=== PATIENT | female | born 1980 | race African-American/Black ===

== ENCOUNTER 2025-07-17 08:39 | Emergency (ER) | payer MEDICAID ==
[~2025-07-17] VITALS: Ht 162.6 cm; Wt 54.0 kg
[~2025-07-17 08:39] MED LIST: ALBU05 IH; LORA0.5T2
[2025-07-17 08:46] VITALS: O2SAT 100
[2025-07-17 09:31] LABS: CLARITY URINE CLOUDY (CLEAR); COLOR URINE YELLOW (YELLOW); GLUCOSE URINE NEGATIVE (NEGATIVE); KETONES URINE NEGATIVE (NEGATIVE); LEUKOCYTE ESTERASE URINE TRACE (NEGATIVE); NITRITE URINE NEGATIVE (NEGATIVE); OCCULT BLOOD URINE 3+ (NEGATIVE); PH URINE 5.5 (4.5-8.0); PROTEIN URINE TRACE (NEGATIVE); SPECIFIC GRAVITY URINE 1.009 (1.005-1.030); UROBILINOGEN URINE 0.2 E.U./dL (0.2-1.0)
[2025-07-17] MEDS: KETOROLAC 30MG/ML VIAL IM ONE (09:37)
[2025-07-17] MEDS: ONDANSETRON 4MG ODT PO ONE (09:38)
[2025-07-17 09:53] LABS: BACTERIA URINE TRACE; SQUAMOUS EPITHELIAL CELL URINE 2+ /lpf (RARE/1+); YEAST URINE 1+
[2025-07-17 10:03] LABS: BASOPHILS % 0.4 % (0.0-2.0); EOSINOPHILS % 0.9 % (0.0-5.0); HEMATOCRIT. 40.3 % (36.0-48.0); HEMOGLOBIN. 13.7 g/dL (12.0-16.0); LYMPHOCYTES % 7.7 % (20.0-50.0); MEAN PLATELET VOLUME 7.9 fl (7.4-10.4); MONOCYTES % 11.3 % (2.0-8.0); NEUTROPHILS % 79.7 % (40.0-76.0); PLATELET 262 x1000/uL (130-400); RED BLOOD CELL COUNT 4.24 mill/uL (4.2-5.4); RED CELL DISTRIBUTION WIDTH 13.9 % (11.6-14.6)
[2025-07-17 10:18] LABS: CREATININE 4.7 mg/dL (0.6-1.0); UREA NITROGEN BLOOD 32 mg/dL (9-23)
[2025-07-17 10:19] LABS: PROTEIN TOTAL 8.4 g/dL (6.0-8.3)
[2025-07-17 10:20] LABS: ASPARTATE AMINOTRANSFERASE 37 IU/L (<34)
[2025-07-17 10:21] LABS: BILIRUBIN DIRECT 0.1 mg/dL (<=3.0); BILIRUBIN TOTAL 0.4 mg/dL (0.1-1.0)
[2025-07-17 10:36] LABS: HCG SCREEN NEGATIVE
[2025-07-17] MEDS ORDERED: TOPUD MT (16:16)
[2025-07-17] MEDS ORDERED: CEFU500T66 MT (16:16)
[2025-07-17 16:25] VITALS: BP 140/95; PULSE 99; RESP 15; TEMP 37.1; O2SAT 100
== END 2025-07-17 16:27 | disposition home or self-care (01) ==
LOC: ER 08:39
DX: N39.0 Urinary tract infection, site not specified (principal); N28.9 Disorder of kidney and ureter, unspecified
CPT/HCPCS: 99284; 80076; 80048; 81003; 81025; 84703; 83690; 85025; 36415; 73502; 96372; J1885; Q0162

== ENCOUNTER 2025-07-25 10:31 | Inpatient (IN) | payer BC, MEDICAID ==
[2025-07-25] VITALS (9 sets, daily range): BP systolic 100–147; BP diastolic 84–122; PULSE 90–140; RESP 17–25; TEMP 36.50292–37.1408; O2SAT 98–100
[~2025-07-25] VITALS: Ht 162.6 cm; Wt 58.5 kg
[~2025-07-25 10:31] MED LIST changes: +CEFU500T66 MT; +TOPUD MT
[2025-07-25] MEDS: ONDANSETRON HCL 4MG/2ML INJ IV ONE (10:58)
[2025-07-25] MEDS: SODIUM CHLORIDE 0.9% 1,000 ML IV ONE (10:58)
[2025-07-25 11:35] LABS: HEMATOCRIT. 33.6 % (36.0-48.0); HEMOGLOBIN. 11.5 g/dL (12.0-16.0); MEAN PLATELET VOLUME 7.0 fl (7.4-10.4); PLATELET 268 x1000/uL (130-400); RED BLOOD CELL COUNT 3.62 mill/uL (4.2-5.4); RED CELL DISTRIBUTION WIDTH 14.1 % (11.6-14.6)
[2025-07-25 11:53] LABS: ETHANOL BLOOD < 10 mg/dL (<10); PROTEIN TOTAL 6.4 g/dL (6.0-8.3)
[2025-07-25 11:54] LABS: ASPARTATE AMINOTRANSFERASE 19 IU/L (<34); BILIRUBIN DIRECT < 0.1 mg/dL (<=3.0)
[2025-07-25 11:55] LABS: BILIRUBIN TOTAL < 0.2 mg/dL (0.1-1.0)
[2025-07-25 12:00] LABS: HCG SCREEN INDETERMINATE
[2025-07-25 12:02] LABS: UREA NITROGEN BLOOD 120 mg/dL (9-23)
[2025-07-25 12:03] LABS: CREATININE 16.4 mg/dL (0.6-1.0)
[2025-07-25] MEDS ORDERED: SODIUM BICARBONATE 150 MEQ in SODIUM CHLORIDE 0.45% 850 ML IV SCH (12:30)
[2025-07-25] MEDS: SODIUM BICARBONATE 8.4% 50MEQ/50ML VIAL IV ONE (12:30)
[2025-07-25] MEDS ORDERED: DEXTROSE 50% WATER 50ML SYRINGE IV ONE (12:30)
[2025-07-25] MEDS ORDERED: CALCIUM GLUCONATE 100MG/ML 10ML VIAL IV ONE (12:30)
[2025-07-25] MEDS ORDERED: ALBUTEROL (0.5%) 2.5MG/0.5ML NEB HHN ONE (12:30)
[2025-07-25] MEDS ORDERED: SODIUM BICARBONATE 8.4% 50MEQ/50ML VIAL IV NR (12:45)
[2025-07-25] MEDS: CALCIUM GLUCONATE 100MG/ML 10ML VIAL IV NR (12:45)
[2025-07-25] MEDS: KETOROLAC 15MG/ML VIAL IV ONE (13:01)
[2025-07-25] MEDS ORDERED: MAGNESIUM/ALUMINUM HYDROXIDE/SIMETHICONE 30ML UDC PO PRN (13:15)
[2025-07-25] MEDS ORDERED: DEXTROSE 50% WATER 50ML SYRINGE IV PRN (13:15)
[2025-07-25] MEDS ORDERED: ACETAMINOPHEN 325MG TABLET PO PRN (13:15)
[2025-07-25] MEDS ORDERED: ENOXAPARIN 40MG/0.4ML SYR SUBCUT SCH (13:15)
[2025-07-25] MEDS ORDERED: MORPHINE SULFATE 2 MG/ML INJ (NOT FOR IM USE) IV PRN (13:15)
[2025-07-25] MEDS ORDERED: CLONIDINE 0.1MG TABLET PO PRN (13:15)
[2025-07-25 13:17] LABS: INR 1.3
[2025-07-25] MEDS: INSULIN LISPRO 100 UNITS/ML SUBCUT SCH (13:20)
[2025-07-25] MEDS ORDERED: NALOXONE HCL 0.4MG/ML VIAL IV PRN (13:45)
[2025-07-25] MEDS: DEXT 10% WATER 1,000 ML IV SCH (14:00)
[2025-07-25] MEDS: SODIUM ZIRCONIUM CYCLOSILICATE 10GM/PACKET PO ONE (14:12)
[2025-07-25] MEDS: SODIUM BICARBONATE 150 MEQ in SODIUM CHLORIDE 0.45% 850 ML IV SCH (14:13)
[2025-07-25] MEDS: DEXTROSE 50% WATER 50ML SYRINGE IV NR (14:15)
[2025-07-25] MEDS: SODIUM BICARBONATE 8.4% 50MEQ/50ML SYR IV NR (14:17)
[2025-07-25] MEDS: INSULIN REGULAR (HUMULIN R) 1000UNITS/10ML VIAL IV ONE (14:36)
[2025-07-25 14:40] LABS: BG BASE EXCESS -19.8 mmol/L (-2.0-3.0); BG CARBOXYHEMOGLOBIN 0.5 % (0.5-1.5); BG DEOXYHEMOGLOBIN 1.8 % (0.0-5.0); BG FRACTION INSPIRED OXYGEN 21; BG HCO3 ACT 6.4 mmol/L (21.0-28.0); BG METHEMOGLOBIN 0.3 % (0.5-1.5); BG OXYGEN SATURATION 98.2 % (94.0-98.0); BG OXYHEMOGLOBIN 97.4 % (94.0-98.0); BG PCO2 17.5 mmHg (32.0-45.0); BG PH 7.181 (7.350-7.450); BG PO2 124.9 mmHg (83.0-108.0); BG SAMPLE SITE LEFT RADIAL; BG TOTAL HEMOGLOBIN 12.7 g/dL (12.0-16.0); BG VENT MODE ROOM AIR
[2025-07-25 15:02] LABS: TROPONIN I HIGH SENSITIVITY 177 ng/L (3.0-34)
[2025-07-25 15:30] LABS: BAND% 13.0 % (1.0-6.0); LYMPHOCYTES % MANUAL 3.0 % (20.0-60.0); MONOCYTES % MANUAL 4.0 % (2.0-8.0); NEUTROPHILS % MANUAL 80.0 % (45.0-75.0)
[2025-07-25 15:31] LABS: PLATELET ESTIMATE NORMAL
[2025-07-25 15:45] LABS: CLARITY URINE CLEAR (CLEAR); COLOR URINE YELLOW (YELLOW); GLUCOSE URINE NEGATIVE (NEGATIVE); KETONES URINE NEGATIVE (NEGATIVE); LEUKOCYTE ESTERASE URINE NEGATIVE (NEGATIVE); NITRITE URINE NEGATIVE (NEGATIVE); OCCULT BLOOD URINE 2+ (NEGATIVE); PH URINE 5.5 (4.5-8.0); PROTEIN URINE 1+ (NEGATIVE); SPECIFIC GRAVITY URINE 1.009 (1.005-1.030); UROBILINOGEN URINE 0.2 E.U./dL (0.2-1.0)
[2025-07-25 15:46] LABS: SODIUM URINE RANDOM 28 mEq/L
[2025-07-25 15:53] LABS: *AMPHETAMINES SCREEN URINE NEGATIVE (NEGATIVE); *BARBITURATES SCREEN URINE NEGATIVE (NEGATIVE); *BENZODIAZEPINES SCREEN URINE NEGATIVE (NEGATIVE); *COCAINE SCREEN URINE NEGATIVE (NEGATIVE); CANNABINOID URINE SCREEN PRESUMPTIVE POSITIVE (NEGATIVE); ECSTASY MDMA SCREEN URINE NEGATIVE (NEGATIVE); METHADONE URINE SCREEN NEGATIVE (NEGATIVE); OPIATES URINE SCREEN NEGATIVE (NEGATIVE); PHENCYCLIDINE URINE SCREEN NEGATIVE (NEGATIVE)
[2025-07-25 16:05] LABS: OSMOLALITY URINE 221 mOsm/kg (500-850)
[2025-07-25 16:11] LABS: HEPATITIS A AB IGM NEGATIVE (Negative)
[2025-07-25 16:12] LABS: HEPATITIS B CORE AB IGM NEGATIVE (Negative); HEPATITIS C AB NON REACTIVE (Neg) (Negative)
[2025-07-25] MEDS: HYDROCORTISONE SOD SUCCINATE 100 MG/2 ML VIAL IV SCH (16:28)
[2025-07-25] MEDS: ENOXAPARIN 30MG/0.3ML SYR SUBCUT SCH (16:28)
[2025-07-25] MEDS: PANTOPRAZOLE SODIUM 40 MG/VIAL IV SCH (16:29)
[2025-07-25 16:49] LABS: BACTERIA URINE 1+; SQUAMOUS EPITHELIAL CELL URINE FEW /lpf (RARE/1+); WBC URINE 0-2 /hpf (0-2)
[2025-07-25] MEDS: BLOOD SUGAR DIAGNOSTIC STRIP TEST SCH (17:30)
[2025-07-25] MEDS ORDERED: HEPARIN 1000 UNITS/ML 10ML ONE (17:46)
[2025-07-25] MEDS ORDERED: LIDOCAINE HCL 1% 10 MG/ML 10ML VIAL ONE (17:46)
[2025-07-25] MEDS ORDERED: HYDRALAZINE 20MG/ML VIAL IV PRN (21:45)
[2025-07-26] VITALS (12 sets, daily range): BP systolic 113–143; BP diastolic 70–113; PULSE 80–100; RESP 12–22; TEMP 36.5–37; O2SAT 96–100
[2025-07-26] MEDS: THIAMINE HCL 100MG TABLET PO SCH (00:27)
[2025-07-26] MEDS: CEFTRIAXONE 1GM/50ML 50 ML IV SCH (00:28)
[2025-07-26 00:55] LABS: TROPONIN I HIGH SENSITIVITY 243 ng/L (3.0-34)
[2025-07-26 07:23] LABS: HEMATOCRIT. 30.5 % (36.0-48.0); HEMOGLOBIN. 10.8 g/dL (12.0-16.0); MEAN PLATELET VOLUME 7.5 fl (7.4-10.4); PLATELET 258 x1000/uL (130-400); RED BLOOD CELL COUNT 3.39 mill/uL (4.2-5.4); RED CELL DISTRIBUTION WIDTH 13.5 % (11.6-14.6)
[2025-07-26 07:28] LABS: UREA NITROGEN BLOOD 54.0 mg/dL (9-23)
[2025-07-26 08:40] LABS: CREATININE 5.4 mg/dL (0.6-1.0)
[2025-07-26] MEDS: ONDANSETRON HCL 4MG/2ML INJ IV PRN (09:49)
[2025-07-26] MEDS: KCL 20MEQ/100ML PREMIX 100 ML IV SCH (11:06)
[2025-07-26] MEDS: POTASSIUM CHLORIDE 40 MEQ in DEXTROSE 5% WATER 980 ML IV SCH (12:50)
[2025-07-26 15:39] LABS: LYMPHOCYTES % MANUAL 3.0 % (20.0-60.0); MONOCYTES % MANUAL 8.0 % (2.0-8.0); NEUTROPHILS % MANUAL 89.0 % (45.0-75.0); PLATELET ESTIMATE NORMAL
[2025-07-27] VITALS (10 sets, daily range): BP systolic 108–143; BP diastolic 72–115; PULSE 72–86; RESP 13–26; TEMP 36.3–37; O2SAT 98–100
[2025-07-27 07:04] LABS: HEMATOCRIT. 29.6 % (36.0-48.0); HEMOGLOBIN. 10.6 g/dL (12.0-16.0); MEAN PLATELET VOLUME 7.3 fl (7.4-10.4); PLATELET 246 x1000/uL (130-400); RED BLOOD CELL COUNT 3.24 mill/uL (4.2-5.4); RED CELL DISTRIBUTION WIDTH 13.7 % (11.6-14.6)
[2025-07-27 07:06] LABS: UREA NITROGEN BLOOD 9 mg/dL (9-23)
[2025-07-27 08:53] LABS: CREATININE 1.0 mg/dL (0.6-1.0)
[2025-07-27] MEDS: POTASSIUM CHLORIDE 20MEQ/PACKET PO SCH (12:14)
[2025-07-27 12:25] LABS: BAND% 8.0 % (1.0-6.0); LYMPHOCYTES % MANUAL 14.0 % (20.0-60.0); MONOCYTES % MANUAL 6.0 % (2.0-8.0); NEUTROPHILS % MANUAL 72.0 % (45.0-75.0)
[2025-07-27 12:26] LABS: PLATELET ESTIMATE NORMAL
[2025-07-27] MEDS: POTASSIUM CHLORIDE 60 MEQ in DEXT 5% WATER 470 ML IV ONE (13:01)
[2025-07-27] MEDS: CEFTRIAXONE 1GM/50ML 50 ML IV SCH (22:09)
[2025-07-28] VITALS (7 sets, daily range): BP systolic 114–143; BP diastolic 81–94; PULSE 72–95; RESP 15–20; TEMP 36.1–36.7; O2SAT 97–100
[2025-07-28 08:47] LABS: CREATININE 0.8 mg/dL (0.6-1.0); UREA NITROGEN BLOOD < 5 mg/dL (9-23)
[2025-07-28] MEDS ORDERED: POTASSIUM CHLORIDE 40 MEQ in DEXTROSE 5% WATER 980 ML IV SCH (09:30)
[2025-07-28] MEDS ORDERED: THIA100T72 PO (11:47)
[2025-07-28] MEDS ORDERED: CEFD300C3 MT (11:47)
[2025-07-28] MEDS: HYDROCODONE/ACETAMINOPHEN 5/325MG TABLET PO PRN (20:27)
[2025-07-28] MEDS: CEFTRIAXONE 1GM/50ML 50 ML IV SCH (20:33)
[2025-07-28] MEDS: ZOLPIDEM TARTRATE 5MG TABLET PO PRN (21:35)
[2025-07-28 22:01] LABS: BASOPHILS % 0.1 % (0.0-2.0); EOSINOPHILS % 2.3 % (0.0-5.0); HEMATOCRIT. 27.1 % (36.0-48.0); HEMOGLOBIN. 9.4 g/dL (12.0-16.0); LYMPHOCYTES % 26.7 % (20.0-50.0); MEAN PLATELET VOLUME 7.7 fl (7.4-10.4); MONOCYTES % 13.4 % (2.0-8.0); NEUTROPHILS % 57.5 % (40.0-76.0); PLATELET 257 x1000/uL (130-400); RED BLOOD CELL COUNT 2.93 mill/uL (4.2-5.4); RED CELL DISTRIBUTION WIDTH 13.9 % (11.6-14.6)
[2025-07-29 04:00] VITALS: BP 128/99; PULSE 75; RESP 20; TEMP 36.7; O2SAT 100
[2025-07-29] MEDS ORDERED: HYDRALAZINE 10 MG in SODIUM CHLORIDE 0.9% 49.5 ML IV PRN (15:30)
[2025-07-29 16:27] VITALS: BP 139/89; PULSE 73; RESP 17; TEMP 98.8
[2025-07-30] MEDS ORDERED: AMOX-494 MT (17:50)
[2025-07-30] MEDS ORDERED: DIVA-73 PO (17:50)
[2025-07-30] MEDS ORDERED: TIZA4CAP6 PO (17:50)
[2025-07-30] MEDS ORDERED: MAGN400C MT (17:50)
== END 2025-07-29 17:05 | disposition home health service (06) | DRG 682 ==
LOC: ER 11:00 → 5EST 12:50 → EDBEDREQTM 12:56 → EDBEDREQ 12:56 → EDBEDREQSVC 12:56 → 7EST 07-27 16:55
PROVIDERS: ADMIT Internal Medicine; ATTEND Internal Medicine
PROC: 02H633Z Insertion of Infusion Device into Right Atrium, Percutaneous Approach (ICD-10-PCS; principal; 2025-07-25)
PROC: 5A1D70Z Performance of Urinary Filtration, Intermittent, Less than 6 Hours Per Day (ICD-10-PCS; 2025-07-25)
DX: N17.9 Acute kidney failure, unspecified (principal); G93.41 Metabolic encephalopathy; K85.90 Acute pancreatitis without necrosis or infection, unspecified; E87.20 Acidosis, unspecified; R18.8 Other ascites; N13.6 Pyonephrosis; N18.4 Chronic kidney disease, stage 4 (severe); I12.9 Hypertensive chronic kidney disease with stage 1 through stage 4 chronic kidney disease, or unspecified chronic kidney disease; F10.10 Alcohol abuse, uncomplicated; D64.9 Anemia, unspecified; E87.1 Hypo-osmolality and hyponatremia; E87.5 Hyperkalemia; E16.2 Hypoglycemia, unspecified; N32.89 Other specified disorders of bladder; E87.70 Fluid overload, unspecified; Z98.891 History of uterine scar from previous surgery
CPT/HCPCS: 36415; 36556; 36600; 71045; 74176; 76700; 77001; 80048; 80076; 80305; 80320; 81003; 82375; 82533; 82805; 82962; 83036; 83735; 83880; 83935; 84300; 84443; 84484; 84702; 84703; 85025; 86705; 86709; 86850; 86900; 87340; 90935; 93005; 93306; 93970; 96365; 96375; 99291; 99292; C1752; J0612; J0696; J1644; J1650; J1720; J1815; J2003; J2405; J2470; J3480; J3490; J7030; J7060; J7070; G0480

== ENCOUNTER 2025-07-30 07:57 | Inpatient (IN) | payer BC, MEDICAID ==
[~2025-07-30] VITALS: Ht 162.6 cm; Wt 53.5 kg
[~2025-07-30 07:57] MED LIST changes: +CEFD300C3 MT; -CEFU500T66 MT; +THIA100T72 PO
[2025-07-30 08:02] VITALS: O2SAT 100
[2025-07-30 09:04] LABS: BASOPHILS % 0.3 % (0.0-2.0); EOSINOPHILS % 3.2 % (0.0-5.0); HEMATOCRIT. 33.5 % (36.0-48.0); HEMOGLOBIN. 11.4 g/dL (12.0-16.0); LYMPHOCYTES % 14.3 % (20.0-50.0); MEAN PLATELET VOLUME 7.5 fl (7.4-10.4); MONOCYTES % 10.9 % (2.0-8.0); NEUTROPHILS % 71.3 % (40.0-76.0); PLATELET 336 x1000/uL (130-400); RED BLOOD CELL COUNT 3.56 mill/uL (4.2-5.4); RED CELL DISTRIBUTION WIDTH 14.2 % (11.6-14.6)
[2025-07-30 09:18] LABS: CREATININE 1.1 mg/dL (0.6-1.0); ETHANOL BLOOD < 10 mg/dL (<10); TROPONIN I HIGH SENSITIVITY 20 ng/L (3.0-34); UREA NITROGEN BLOOD 7 mg/dL (9-23)
[2025-07-30 09:19] LABS: PROTEIN TOTAL 7.1 g/dL (6.0-8.3)
[2025-07-30 09:20] LABS: ASPARTATE AMINOTRANSFERASE 75 IU/L (<34); BILIRUBIN DIRECT 0.1 mg/dL (<=3.0); BILIRUBIN TOTAL 0.4 mg/dL (0.1-1.0)
[2025-07-30 09:21] LABS: HCG SCREEN INDETERMINATE
[2025-07-30] MEDS ORDERED: CLONIDINE 0.1MG TABLET PO PRN (09:45)
[2025-07-30] MEDS ORDERED: ONDANSETRON HCL 4MG/2ML INJ IV PRN (09:45)
[2025-07-30] MEDS ORDERED: IPRATROPIUM/ALBUTEROL 0.5-3(2.5)MG/3ML NEB HHN PRN (09:45)
[2025-07-30] MEDS ORDERED: TIZANIDINE HCL 2MG TABLET PO PRN (09:45)
[2025-07-30] MEDS ORDERED: ACETAMINOPHEN 325MG TABLET PO PRN (09:45)
[2025-07-30] MEDS ORDERED: ACETAMINOPHEN 650MG/20.3ML UDC GT PRN (09:45)
[2025-07-30 10:06] LABS: *AMPHETAMINES SCREEN URINE NEGATIVE (NEGATIVE); *BARBITURATES SCREEN URINE NEGATIVE (NEGATIVE); *BENZODIAZEPINES SCREEN URINE NEGATIVE (NEGATIVE); *COCAINE SCREEN URINE NEGATIVE (NEGATIVE); CANNABINOID URINE SCREEN PRESUMPTIVE POSITIVE (NEGATIVE); ECSTASY MDMA SCREEN URINE NEGATIVE (NEGATIVE); METHADONE URINE SCREEN NEGATIVE (NEGATIVE); OPIATES URINE SCREEN NEGATIVE (NEGATIVE); PHENCYCLIDINE URINE SCREEN NEGATIVE (NEGATIVE)
[2025-07-30 10:15] LABS: CLARITY URINE CLEAR (CLEAR); COLOR URINE YELLOW (YELLOW); GLUCOSE URINE NEGATIVE (NEGATIVE); KETONES URINE NEGATIVE (NEGATIVE); LEUKOCYTE ESTERASE URINE NEGATIVE (NEGATIVE); NITRITE URINE NEGATIVE (NEGATIVE); OCCULT BLOOD URINE 2+ (NEGATIVE); PH URINE 8.0 (4.5-8.0); PROTEIN URINE 1+ (NEGATIVE); SPECIFIC GRAVITY URINE 1.003 (1.005-1.030); UROBILINOGEN URINE 0.2 E.U./dL (0.2-1.0)
[2025-07-30 10:38] LABS: RBC URINE 0-2 /hpf (0-2); SQUAMOUS EPITHELIAL CELL URINE RARE /lpf (RARE/1+); WBC URINE 0-2 /hpf (0-2)
[2025-07-30 10:41] LABS: BACTERIA URINE NONE SEEN
[2025-07-30] MEDS: TAMSULOSIN HCL 0.4MG SR CAPSULE PO SCH (10:50)
[2025-07-30] MEDS: FOLIC ACID 1MG TABLET PO SCH (10:50)
[2025-07-30] MEDS: MAGNESIUM 4 G PREMIX 100 ML IV ONE (11:05)
[2025-07-30 11:13] LABS: INR 1.1
[2025-07-30 11:56] LABS: FOLIC ACID (FOLATE) SERUM 12.10 ng/mL (>5.38)
[2025-07-30 11:57] LABS: VITAMIN B12 SERUM 616 pg/mL (211-911)
[2025-07-30 12:00] VITALS: BP 125/76; PULSE 70; PULSE 80; RESP 18; TEMP 36.7; TEMP 36.7516; O2SAT 98
[2025-07-30 16:00] VITALS: BP_SYST 102; BP_SYST 137; BP_DIAS 69; BP_DIAS 80; PULSE 61; PULSE 91; RESP 18; TEMP 36.7; TEMP 37.2; O2SAT 98
[2025-07-30] MEDS ORDERED: AMOX-494 MT (17:50)
[2025-07-30] MEDS ORDERED: TIZA4CAP6 PO (17:50)
[2025-07-30] MEDS ORDERED: DIVA-73 PO (17:50)
[2025-07-30] MEDS ORDERED: MAGN400C MT (17:50)
[2025-07-30] MEDS ORDERED: *PATIENT'S OWN MEDICATION STORAGE XX SCH (18:45)
[2025-07-30 20:00] VITALS: BP 109/71; PULSE 78; RESP 18; TEMP 36.6; O2SAT 100
[2025-07-30] MEDS: POTASSIUM CHLORIDE 20MEQ TABLET SR PO NR (21:01)
[2025-07-30] MEDS: DIVALPROEX SODIUM 250MG DR TABLET PO SCH (21:01)
[2025-07-31] VITALS: BP 114/75; PULSE 90; RESP 19; TEMP 36.2; O2SAT 98
[2025-07-31 04:00] VITALS: BP 118/79; PULSE 73; RESP 18; TEMP 36.8; O2SAT 100
[2025-07-31 08:00] VITALS: BP 122/79; PULSE 81; RESP 17; TEMP 36.5; O2SAT 100
[2025-07-31 09:11] LABS: PLATELET 295 x1000/uL (130-400); RED BLOOD CELL COUNT 3.04 mill/uL (4.2-5.4); RED CELL DISTRIBUTION WIDTH 14.1 % (11.6-14.6)
[2025-07-31] MEDS: PANTOPRAZOLE SODIUM 40 MG/VIAL IV SCH (09:13)
[2025-07-31 09:38] LABS: CREATININE 0.7 mg/dL (0.6-1.0); UREA NITROGEN BLOOD < 5 mg/dL (9-23)
[2025-07-31 09:40] LABS: PHOSPHORUS 2.1 mg/dL (2.5-4.9)
[2025-07-31 10:08] LABS: HEPATITIS C AB NON REACTIVE (Neg) (Negative)
[2025-07-31 12:00] VITALS: BP 112/73; PULSE 81; RESP 18; TEMP 36.6; O2SAT 98
[2025-07-31] MEDS: MAGNESIUM 2 G PREMIX 50 ML IV SCH ×2 (12:22→18:53)
[2025-07-31] MEDS ORDERED: POTASSIUM PHOSPHATE 15 MMOL in DEXT 5% WATER 245 ML IV NR (15:30)
[2025-07-31 16:00] VITALS: BP 122/79; PULSE 81; RESP 18; TEMP 36.5; O2SAT 100
[2025-07-31] MEDS ORDERED: POTASSIUM CHLORIDE 20MEQ/PACKET PO NR (17:44)
[2025-07-31 20:00] VITALS: BP 111/76; PULSE 80; PULSE 86; RESP 18; TEMP 36.2; TEMP 36.5; O2SAT 97; O2SAT 98
[2025-07-31] MEDS: POTASSIUM-SODIUM PHOSPHATE POWDER PACKET PO SCH (20:54)
[2025-08-01] VITALS: BP 111/81; PULSE 79; RESP 18; TEMP 36.7; O2SAT 97
[2025-08-01] MEDS: DOCUSATE SODIUM 100MG CAPSULE PO PRN (02:37)
[2025-08-01 04:00] VITALS: BP 99/69; PULSE 72; RESP 18; TEMP 36.6; O2SAT 100
[2025-08-01 07:34] LABS: BASOPHILS % 0.6 % (0.0-2.0); EOSINOPHILS % 4.2 % (0.0-5.0); HEMATOCRIT. 27.9 % (36.0-48.0); HEMOGLOBIN. 9.6 g/dL (12.0-16.0); LYMPHOCYTES % 24.5 % (20.0-50.0); MEAN PLATELET VOLUME 8.1 fl (7.4-10.4); MONOCYTES % 10.9 % (2.0-8.0); NEUTROPHILS % 59.8 % (40.0-76.0); PLATELET 335 x1000/uL (130-400); RED BLOOD CELL COUNT 3.01 mill/uL (4.2-5.4); RED CELL DISTRIBUTION WIDTH 14.1 % (11.6-14.6)
[2025-08-01 07:38] LABS: CREATININE 0.7 mg/dL (0.6-1.0)
[2025-08-01 07:39] LABS: UREA NITROGEN BLOOD < 5 mg/dL (9-23)
[2025-08-01 07:41] LABS: PHOSPHORUS 2.3 mg/dL (2.5-4.9)
[2025-08-01 08:00] VITALS: BP 117/73; PULSE 68; RESP 18; TEMP 36.6; O2SAT 99
[2025-08-01] MEDS ORDERED: THROAT LOZENGES-BENZOCAINE/MENTH/CETYLPYRD CL LOZENGES MM PRN (10:15)
[2025-08-01 12:00] VITALS: BP 111/74; PULSE 76; RESP 20; TEMP 36.7; O2SAT 99
[2025-08-01 12:42] VITALS: BP 114/74; PULSE 72; RESP 18; TEMP 98.1
== END 2025-08-01 15:06 | disposition home or self-care (01) | DRG 683 ==
LOC: ER 07:57 → 8EST 09:43 → EDBEDREQ 09:46 → EDBEDREQTM 09:46 → EDBEDREQSVC 09:46 → ENRESERV 11:44 → ER 11:47
PROVIDERS: ADMIT Internal Medicine; ATTEND Internal Medicine
DX: N17.9 Acute kidney failure, unspecified (principal); E87.1 Hypo-osmolality and hyponatremia; I27.20 Pulmonary hypertension, unspecified; N18.4 Chronic kidney disease, stage 4 (severe); I12.9 Hypertensive chronic kidney disease with stage 1 through stage 4 chronic kidney disease, or unspecified chronic kidney disease; F10.10 Alcohol abuse, uncomplicated; D64.9 Anemia, unspecified; G40.909 Epilepsy, unspecified, not intractable, without status epilepticus; R33.9 Retention of urine, unspecified; E83.42 Hypomagnesemia; E87.6 Hypokalemia; G89.29 Other chronic pain; Z98.891 History of uterine scar from previous surgery
CPT/HCPCS: 36415; 80048; 80076; 80305; 80320; 81003; 82270; 82607; 82728; 82746; 83540; 83550; 83735; 83880; 84100; 84484; 84702; 84703; 85025; 85027; 86705; 87340; 93005; 99285; J2470; J3475; J3490; J7060; G0480